=== PATIENT | female | born 1990 | race Caucasian/White ===

== ENCOUNTER 2018-10-20 19:24 | Emergency (ER) | payer OTHER ==
--- NOTE | 2018-10-20 19:52 | ED Physician Documentation ---
History of Present Illness - Stated complaint Stated Complaint: HEAD WOUND - Chief complaint Chief Complaint: Trauma Hd/Nk - History obtained from History obtained from: Patient - Additonal information Additional information: Patient is a previously healthy 28-year-old female presenting with left-sided head injury after accidentally running into a corner of a wall while playing with dogs just prior to arrival. Patient did not have loss of consciousness or other injury. Patient reports left-sided head pain without vision changes, epistaxis, nausea, vomiting, neck pain, back pain, or other pain or injuries. Patient is not on any anticoagulation. Tetanus current. Patient denies any known improving or worsening factors to her symptoms. Review of Systems Eyes: denies: Loss of vision Nose: denies: Epistaxis Musculoskeletal: denies: Neck pain PD PAST MEDICAL HISTORY - Past Medical History Past Medical History: No - Past Surgical History Past Surgical History: No - Allergies Allergies/Adverse Reactions: Allergies Allergy/AdvReac Type Severity Reaction Status Date / Time No Known Drug Allergies Allergy Verified 10/20/18 19:34 PD ED PE NORMAL - General General: Alert and oriented X 3, No acute distress, Well developed/nourished - HEENT HEENT: PERRL, EOMI, Moist mucous membranes. No: Atraumatic (Extremely small, nearly pinpoint area of bleeding to left occiput.) - Respiratory Respiratory: No respiratory distress - Derm Derm: Normal color, Warm and dry, No rash - Extremities Extremities: No deformity, Normal ROM s pain - Neuro Neuro: Alert and oriented X 3, No motor deficit, No sensory deficit - Psych Psych: Normal mood, Normal affect Results - Vitals Vitals: Vital Signs - 24 hr 10/20/18 10/20/18 10/20/18 19:31 19:34 20:34 Temperature 36.7 C 36.7 C 36.1 C L Heart Rate 103 H 103 H 73 Respiratory 20 20 20 Rate Blood Pressure 119/85 H 119/85 H 126/85 H O2 Saturation 100 100 97 10/20/18 21:26 Temperature Heart Rate Respiratory 17 Rate Blood Pressure O2 Saturation Oxygen O2 Source Room air PD MEDICAL DECISION MAKING - ED course Complexity details: re-evaluated patient, considered differential, d/w patient, d/w family ED course: Patient presenting after accidental fall that resulted in striking of her head and small laceration to scalp while playing with dogs earlier today. Patient adamantly denies loss of consciousness or other symptoms otherwise I suspicion for facial or skull fracture, intracranial bleed, spine or spinal cord injury, but considered. Also consider concussion and did discuss this possibility given striking of head with patient and provided her with precautions for such. However, did not feel patient required CT head at this time. Remainder of physical exam benign and patient adamantly denied other symptoms or injuries at this time. Wound copiously cleaned and evaluated multiple times with only small, nearly pinpoint area of bleeding that was not amenable to repair with staple or suture. Did not feel tape or glue also appropriate. Let applied and reevaluated with no active bleeding. Pressure dressing also applied. Advised patient of appropriate wound care, concussion precautions and restrictions, return instructions, as well as follow-up recommendations. Feel that she is safe to discharge home at this time. Patient voiced understanding and is comfortable with discharge plan. Departure - Departure Disposition: 01 Home, Self Care Clinical Impression: Laceration Concussion Qualifiers: Encounter type: initial encounter Loss of consciousness presence/duration: without LOC Qualified Code(s): S06.0X0A - Concussion without loss of consciousness, initial encounter Condition: Good Instructions: ED Concussion, ED Laceration All Follow-Up: Paulino Szymanski MD [Primary Care Provider] - Within 3 Days Comments: Please keep wound clean and dry, using running water and soap only to clean. Do not scrub or submerge underwater. Please be gentle so as to not cause rebleeding. May also be aware that you could experience concussion symptoms. Please refrain from activities that could result in falling or injuring herself over the next several days, and to follow-up with your primary care physician next 2-3 days for reevaluation and approval to return to full activities. Re turn to ED sooner if experience worsening symptoms or other concerns. Discharge Date/Time: 10/20/18 21:32
[2018-10-20] MEDS ORDERED: LIDOCAINE-EPINEPH-TETRACAINE 3 ML SYRINGE TOP STA (20:34)
[2018-10-20 20:35] VITALS: BP 126/85
== END 2018-10-20 21:32 | disposition home or self-care (01) ==
LOC: ED 19:24
DX: S01.01XA Laceration without foreign body of scalp, initial encounter (principal); W22.01XA Walked into wall, initial encounter; Y93.02 Activity, running
CPT/HCPCS: 99283

== ENCOUNTER 2018-11-10 22:40 | Outpatient (CLI) | payer OTHER | END 2018-11-10 22:41 | disposition critical access hospital (66) | LOC: EMS 22:40 | PROVIDERS: ATTEND Surgery | DX: R45.851 Suicidal ideations (principal) | CPT/HCPCS: A0425; A0429 ==

== ENCOUNTER 2018-11-10 22:56 | Emergency (ER) | payer OTHER ==
--- NOTE | 2018-11-10 23:12 | ED Physician Documentation ---
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 She indicates that she was on deployment for 7 months working hard developed the carpal tunnel there and when she returned home she was on short duty for 4 months without work and she recovered when she went back to work her symptoms came back worse than previously. She has become frustrated with this has had a long wait for a referral for nerve testing and she is only recently begun physical therapy. She is found that physical therapy has not helped as yet and she is sleeping in wrist splints nightly. This evening she is feeling depressed about her inability to perform at work and this is distant power into her. She denies other stressors in life. She states that she was happy to have the assignment here as her father lives in [place] and she is happy with her command here. She states that it is a small group that all take care of each other and she is felt that she has had to take up the slack when other workers have been damaged as well. She is felt that she has not been able to do this adequately. This evening she drank some alcohol and she is sliced on her wrist with a kitchen knife. She states that this was not a suicide attempt but merely a way to feel something. She describes pain in her shoulders and neck as well as numbness in her hands and forearms consistent with carpal tunnel syndrome. Review of Systems Constitutional: denies: Fever Eyes: denies: Decreased vision Ears: denies: Ear pain Nose: reports: Rhinorrhea / runny nose, Congestion Throat: reports: Sore throat Cardiac: denies: Chest pain / pressure Respiratory: denies: Dyspnea, Cough GI: denies: Abdominal Pain, Nausea, Vomiting : denies: Dysuria, Frequency Skin: denies: Rash Musculoskeletal: reports: Neck pain, Back pain, Extremity pain Neurologic: reports: Focal weakness, Numbness. denies: Generalized weakness, Difficulty speaking, Near syncope, Confused, Altered mental status, Headache, Head injury, LOC PD PAST MEDICAL HISTORY - Past Surgical History Past Surgical History: No - Present Medications Home Medications: Ambulatory Orders Medication Instructions Recorded Confirmed Cholecalciferol (Vitamin D3) 0 mg PO DAILY 11/10/18 11/10/18 [Vitamin D3] Ibuprofen 600 mg PO DAILY 11/10/18 11/10/18 Venlafaxine ER [Effexor ER] 0 mg PO DAILY 11/10/18 11/10/18 - Allergies Allergies/Adverse Reactions: Allergies Allergy/AdvReac Type Severity Reaction Status Date / Time No Known Drug Allergies Allergy Verified 11/10/18 23:04 - Social History Does the pt smoke?: No Smoking Status: Never smoker Does the pt drink ETOH?: No Does the pt have substance abuse?: No - Immunizations Immunizations are current?: Yes PD ED PE NORMAL - Vitals Vital signs reviewed: Yes (hypertensive ) - General General: Alert and oriented X 3, No acute distress, Well developed/nourished, Other (young woman with a broad smile and insight into her plight. Her affect does not indicate severe depression. She does develop deep tears when describing not being able to do her usual work. ) - HEENT HEENT: Atraumatic, PERRL, EOMI, Ears normal, Moist mucous membranes, Pharynx benign, Dentition benign - Neck Neck: Supple, no meningeal sign, No bony TTP - Cardiac Cardiac: RRR, No murmur - Respiratory Respiratory: No respiratory distress, Clear bilaterally - Abdomen Abdomen: Soft, Non tender - Back Back: No CVA TTP, No spinal TTP - Derm Derm: Normal color, Warm and dry, No rash - Extremities Extremities: No deformity, No edema, Other (There are multiple superficial abrasions to the left volar wrist. Both Tinel's and Marivel's are positive on the wrists bilaterally.) - Neuro Neuro: Alert and oriented X 3, audiometric technician 2-12 intact, No motor deficit, Normal speech Eye Opening: Spontaneous Motor: Obeys Commands Verbal: Oriented GCS Score: 15 - Psych Psych: Other (mood and affect are labile comenserate with level of intoxication. ) Results - Vitals Vitals: Vital Signs - 24 hr 11/10/18 11/10/18 11/11/18 22:57 23:06 01:00 Temperature 36.4 C L Heart Rate 91 82 Respiratory 18 16 19 Rate Blood Pressure 138/99 H 128/76 O2 Saturation 100 97 11/11/18 05:03 Temperature 36.4 C L Heart Rate 98 Respiratory 16 Rate Blood Pressure 113/74 O2 Saturation 99 Oxygen O2 Source Room air - Labs Labs: Laboratory Tests 11/10/18 11/10/18 11/10/18 23:34 23:34 23:45 WBC 5.4 RBC 3.79 L Hgb 13.3 Hct 37.9 MCV 99.9 H MCH 35.1 H MCHC 35.1 RDW 12.6 Plt Count 260 MPV 6.9 L Neut # (Auto) 2.2 Lymph # (Auto) 2.0 [place] # (Auto) 1.0 Eos # (Auto) 0.2 Baso # (Auto) 0.1 Absolute Nucleated RBC 0.00 Nucleated RBC % 0.0 Sodium Potassium Chloride Carbon Dioxide Anion Gap BUN Creatinine Estimated GFR (MDRD) Glucose Calcium Total Bilirubin AST ALT Alkaline Phosphatase Total Protein Albumin Globulin Albumin/Globulin Ratio Lipase Urine Color YELLOW Urine Clarity CLEAR Urine pH 6.0 Ur Specific [place] <=1.005 Urine Protein NEGATIVE Urine Glucose (UA) NEGATIVE Urine Ketones NEGATIVE Urine Occult Blood TRACE-INTA Urine Nitrite NEGATIVE Urine Bilirubin NEGATIVE Urine Urobilinogen 0.2 (NORMAL) Ur Leukocyte Esterase NEGATIVE Ur Microscopic Review NOT INDICATED Urine Culture Comments NOT INDICATED Urine HCG, Qual NEGATIVE Urine Opiates Screen NEGATIVE Ur Oxycodone Screen NEGATIVE Urine Methadone Screen NEGATIVE Ur Propoxyphene Screen NEGATIVE Ur Barbiturates Screen NEGATIVE Ur Tricyclics Screen NEGATIVE Ur Phencyclidine Scrn NEGATIVE Ur Amphetamine Screen NEGATIVE U Methamphetamines Scrn NEGATIVE U Benzodiazepines Scrn NEGATIVE Urine Cocaine Screen NEGATIVE U Cannabinoids Screen NEGATIVE Ethyl Alcohol 11/10/18 23:45 WBC RBC Hgb Hct MCV MCH MCHC RDW Plt Count MPV Neut # (Auto) Lymph # (Auto) [place] # (Auto) Eos # (Auto) Baso # (Auto) Absolute Nucleated RBC Nucleated RBC % Sodium 140 Potassium 3.2 L Chloride 103 Carbon Dioxide 27 Anion Gap 10.0 BUN 11 Creatinine 0.6 Estimated GFR (MDRD) 121 Glucose 98 Calcium 9.2 Total Bilirubin 0.3 AST 17 ALT 16 Alkaline Phosphatase 77 Total Protein 7.5 Albumin 4.0 Globulin 3.5 Albumin/Globulin Ratio 1.1 Lipase 38 Urine Color Urine Clarity Urine pH Ur Specific [place] Urine Protein Urine Glucose (UA) Urine Ketones Urine Occult Blood Urine Nitrite Urine Bilirubin Urine Urobilinogen Ur Leukocyte Esterase Ur Microscopic Review Urine Culture Comments Urine HCG, Qual Urine Opiates Screen Ur Oxycodone Screen Urine Methadone Screen Ur Propoxyphene Screen Ur Barbiturates Screen Ur Tricyclics Screen Ur Phencyclidine Scrn Ur Amphetamine Screen U Methamphetamines Scrn U Benzodiazepines Scrn Urine Cocaine Screen U Cannabinoids Screen Ethyl Alcohol 348.8 PD MEDICAL DECISION MAKING - ED course Complexity details: considered differential, d/w patient ED course: 28 y/o female with carpal tunnel syndrome is frustrated with her condition and is disempowered by not being able to do her job. She is kept in the ED overnight and evaluated in the am. She appears sober and denies suicidality. She indicates that she was being dramatic with the abrasions and this is related to intoxication. She would like to go home and is willing to contract for safety. 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 Her risk for suicide is exceedingly low. She was administered a dose of decadron shortly after arrival and she has less nighttime symptoms than usual. I would like to refer her to ortho to consider release. Departure - Departure Disposition: 01 Home, Self Care Clinical Impression: Carpal tunnel syndrome on both sides Depression Qualifiers: Depression Type: reactive depression Qualified Code(s): F32.9 - Major depressive disorder, single episode, unspecified Alcoholic intoxication Qualifiers: Complication of substance-induced condition: uncomplicated Qualified Code(s): F10.920 - Alcohol use, unspecified with intoxication, uncomplicated Condition: Stable Instructions: Carpal Tunnel Release Surg, ED Stress React, ED Carpal Tunnel, ED Alcohol Intoxication Follow-Up: Paulino Szymanski MD [Primary Care Provider] - [facility] [Provider Group]
[2018-11-10] MEDS ORDERED: CHERRY SYRUP 10 ML UDC PO ONE (23:29)
[2018-11-10] MEDS ORDERED: DEXAMETHASONE 10 MG/ML VIAL PO STA (23:29)
[2018-11-10 23:40] LABS: MUDS CUTOFF CONCENTRATIONS CUTOFF CONC BELOW:
[2018-11-10 23:43] LABS: BILIRUBIN,URINE NEGATIVE (NEGATIVE); GLUCOSE, URINE (UA) NEGATIVE (NEGATIVE); KETONES,URINE (UA) NEGATIVE (NEGATIVE); LEUKOCYTE ESTERASE, URINE NEGATIVE (NEGATIVE); NITRITE,URINE NEGATIVE (NEGATIVE); OCCULT BLOOD,URINE TRACE-INTA (NEGATIVE); PROTEIN,URINE NEGATIVE (NEGATIVE); UROBILINOGEN,URINE 0.2 (NORMAL) E.U./dL (NORMAL)
[2018-11-10 23:45] LABS: CLARITY,URINE CLEAR (CLEAR); HCG UR QUAL NEGATIVE
[2018-11-10 23:54] LABS: BASOPHILS # (AUTO) 0.1 10^3/uL (0.0-0.1); BASOPHILS % (AUTO) 2.1 %; EOSINOPHILS # (AUTO) 0.2 10^3/uL (0.0-0.7); HGB - HEMOGLOBIN 13.3 g/dL (12.0-16.0); LYMPHOCYTES % (AUTO) 36.3 %; MEAN CORPUSCULAR HEMOGLOBIN 35.1 pg (27.0-31.0); MEAN CORPUSCULAR HGB CONC 35.1 g/dL (32.0-36.0); MEAN CORPUSCULAR VOLUME 99.9 fL (81.0-99.0); MEAN PLATELET VOLUME 6.9 fL (7.9-10.8); NEUTROPHILS # (AUTO) 2.2 10^3/uL (1.5-6.6); NEUTROPHILS % (AUTO) 39.6 %; PLT - PLATELET COUNT 260 10^3/uL (130-450); RED BLOOD COUNT 3.79 10^6/uL (4.20-5.40); RED CELL DISTRIBUTION WIDTH 12.6 % (12.0-15.0); WHITE BLOOD COUNT 5.4 x10^3/uL (4.8-10.8)
[2018-11-10 23:54] LABS: AMPHETAMINE SCREEN,URINE NEGATIVE (NEGATIVE); BENZODIAZEPINES SCREEN, URINE NEGATIVE (NEGATIVE); COCAINE SCREEN URINE NEGATIVE (NEGATIVE); METHADONE SCREEN, URINE NEGATIVE (NEGATIVE); METHAMPHETAMINES SCREEN, URINE NEGATIVE (NEGATIVE); OPIATE SCREEN, URINE NEGATIVE (NEGATIVE); OXYCODONE SCREEN, URINE NEGATIVE (NEGATIVE); PROPOXYPHENE SCREEN, URINE NEGATIVE (NEGATIVE); TRICYCLIC ANTIDEPRESSANT,URINE NEGATIVE (NEGATIVE)
[2018-11-11 00:05] LABS: ALBUMIN/GLOBULIN RATIO 1.1 (1.0-2.2); BILIRUBIN,TOTAL 0.3 mg/dL (0.2-1.0); CALCIUM 9.2 mg/dL (8.5-10.3); CREATININE 0.6 mg/dL (0.4-1.0); TOTAL PROTEIN 7.5 g/dL (6.7-8.2)
[2018-11-11] MEDS ORDERED: LORazepam 1 MG TABLET PO STA (00:57)
[2018-11-11 05:03] VITALS: BP 113/74
== END 2018-11-11 06:29 | disposition home or self-care (01) ==
LOC: EDUNIT# → ED 22:56
DX: G56.03 Carpal tunnel syndrome, bilateral upper limbs (principal); F32.9 Major depressive disorder, single episode, unspecified; F10.920 Alcohol use, unspecified with intoxication, uncomplicated; S60.812A Abrasion of left wrist, initial encounter; X78.1XXA Intentional self-harm by knife, initial encounter
CPT/HCPCS: 36415; 80053; 80320; 81003; 81025; 83690; 85025; 99283; A9270; J8499; 80306; 81001; 87086

== ENCOUNTER 2018-12-25 08:53 | Outpatient (CLI) | payer OTHER ==
--- NOTE | 2018-12-25 17:55 | MRI Report ---
Reason: WEAKNESS,PAIN IN RIGHT ARM,PAIN IN LEFT ARM Procedure Date: 12/25/2018 Accession Number: [id number] / [id number] Procedure: MRI - Cervical Spine W/O CPT Code: FULL RESULT: MRI CERVICAL SPINE WITHOUT CONTRAST INDICATION: 28-year-old female. Neck pain, bilateral shoulder and arm pain. Bilateral arm numbness and tingling. TECHNIQUE: 1. Sagittal STIR, T1 and T2. 2. Axial T1 and T2. COMPARISON:None. FINDINGS: Vertebral alignment is essentially normal. There is minimal anterior wedging of the C5 and C6 vertebral bodies. The vertebral body heights are otherwise maintained. No evidence of recent compression fracture. There is at least partial loss of normal T2 signal from the disks at the C2-C3 through C5-C6 levels, the marrow signal intensity is unremarkable. Axial images: C2-C3: No disk herniation. The spinal canal is widely patent. The neural foramina are widely patent. C3-C4: No disk herniation. The spinal canal is widely patent. Minimal uncovertebral hypertrophy. No foraminal stenosis. C4-C5: No disk herniation. The spinal canal is widely patent. There is minor uncovertebral hypertrophy. No foraminal stenosis. C5-C6: No disk herniation. Minimal uncovertebral hypertrophy. No foraminal stenosis. C6-C7: No disk herniation. No spinal canal or foraminal stenosis. C7-T1: No disk herniation. No spinal canal or foraminal stenosis. The spinal cord appears to have a normal signal intensity throughout. IMPRESSION: 1. There is evidence of very early, multilevel disk degeneration. However, no disk herniation is demonstrated and there is no spinal stenosis or neural impingement. 2. Otherwise unremarkable, unenhanced cervical spine MRI. In particular, no evidence of demyelinating disease or other pathology in the cervical spinal cord.
== END 2018-12-25 08:54 | disposition home or self-care (01) ==
LOC: DI 08:53
PROVIDERS: ATTEND Orthopaedic Surgery
DX: M50.30 Other cervical disc degeneration, unspecified cervical region (principal); M47.812 Spondylosis without myelopathy or radiculopathy, cervical region
CPT/HCPCS: 72141